=== PATIENT | female | born 1995 | race Caucasian/White ===

== ENCOUNTER 2018-09-16 11:58 | Outpatient (CLI) | payer MEDICAID ==
[~2018-09-16] VITALS: Ht 157.5 cm; Wt 88.7 kg
[2018-09-16 12:19] VITALS: Ht 157.5 cm; Wt 88.7 kg
[2018-09-16 12:28] VITALS: BP 130/64; PULSE 94; RESP 18
[2018-09-16] MEDS ORDERED: LACTATED RINGER'S 1,000 ML IV SCH (12:30)
--- NOTE | 2018-09-16 13:05 | PN ---
Triage Information Date/Time Reason for visit: DFM Weeks of Gestation 31 weeks and 6 days /Para Diabetes: none Hypertention: none Objective Vital Signs Date Temp Pulse Resp B/P (MAP) Pulse Ox O2 O2 Flow FiO2 Time Delivery Rate 09/16/18 98.2 94 18 130/64 Room Air 12:28 (86) Heart Rate: 140's Contractions: None Results/Medications Medications Current Medications Lactated Ringer's 1,000 ml @ 125 mls/hr Q8H IV Last administered on 09/16/18at 12:42; Admin Dose 125 MLS/HR; Start 09/16/18 at 12:30 Disposition: Discharge Assessment/Plan 23 years old 2 para 0-0-1-0 with single intrauterine at 31 weeks and 6 days complaining of decreased movement. She denies nausea, vomiting, shortness of breath, chest pain, headache, visual changes, vaginal bleeding or LOF. -FHR: No sign of metabolic acidosis- Category I -Contractions: None -Ultrasound performed: Normal SUSAN, BPP 8 out of 8 -Symptoms and sign of labor, preeclampsia, kick count discussed with patient, she voiced understanding. All of her questions answered. -Patient was discharged home in stable condition with the appropriate discharge instructions provided. I would like patient to have close follow-up with her primary physician or outpatient clinic in 1-2 days or return to triage for worsening symptoms or any other urgent concerns. RAYMOND BEASLEY Sep 16, 2018 13:05
== END 2018-09-16 13:05 | disposition home or self-care (01) ==
LOC: L-D 11:58 → OBT 11:58
PROVIDERS: ATTEND Obstetrics & Gynecology
DX: O36.8130 Decreased fetal movements, third trimester, not applicable or unspecified (principal); Z3A.31 31 weeks gestation of pregnancy
CPT/HCPCS: 76818; 96360; J7120; Z7500; G0463

== ENCOUNTER 2018-09-20 08:45 | Outpatient (CLI) | payer MEDICAID ==
[~2018-09-20] VITALS: Ht 157.5 cm; Wt 110.0 kg
[2018-09-20 08:48] VITALS: Ht 157.5 cm; Wt 110.0 kg
--- NOTE | 2018-09-20 10:28 | PN ---
Triage Information Date/Time Reason for visit: Hx of Decreased movments for repeat NST BPP Weeks of Gestation 32+ /Para n/a Diabetes: none Hypertention: none Objective Heart Rate: 140's Contractions: None Disposition: Discharge Assessment/Plan [facility] 12/31 Precautiosn discussed Questions answered Follow up in 2 days for NST BPP MARIO SIMMONS M.D. Sep 20, 2018 10:28
--- NOTE | 2018-09-20 10:38 | TRIAGE ---
OB Triage Datetime Report Generated by CPN: 09/20/2018 10:38 Datetime: 09/20/2018 10:14 Stage of : OB Triage Maternal Assessment Level of Consciousness: Keenly Alert, Responsive DTR's/Clonus: DTRs 1+ Headache: Denies Breath Sounds, Left: Clear and Equal Breath Sounds, Right: Clear and Equal Nausea/Vomiting: Denies RUQ Epigastric Pain: Denies Labor Evaluation Frequency: NONE Monitor Mode: External Resting Tone [place]: Relaxed Heart Rate FHR Baseline Rate: 135 Monitor Mode: External US Variability: Moderate 6-25 bpm Accelerations: 15X15 Decelerations: None Category: Category I Pain Assessment Pain Scale: 0 Pain Presence: None/Denies Pain Type: N/A Pain Goal: 3 Vaginal Exam Membrane Status: Intact Datetime: 09/20/2018 10:00 Stage of : OB Triage Maternal Assessment Level of Consciousness: Keenly Alert, Responsive DTR's/Clonus: DTRs 1+ Headache: Denies Breath Sounds, Left: Clear and Equal Breath Sounds, Right: Clear and Equal Nausea/Vomiting: Denies RUQ Epigastric Pain: Denies Labor Evaluation Frequency: NONE Monitor Mode: External Resting Tone [place]: Relaxed Heart Rate FHR Baseline Rate: 135 Monitor Mode: External US Variability: Moderate 6-25 bpm Accelerations: 15X15 Decelerations: None Pain Assessment Pain Scale: 0 Pain Presence: None/Denies Pain Type: N/A Pain Goal: 3 Vaginal Exam Membrane Status: Intact Datetime: 09/20/2018 09:23 Stage of : OB Triage Maternal Assessment Level of Consciousness: Keenly Alert, Responsive DTR's/Clonus: DTRs 1+ Headache: Denies Breath Sounds, Left: Clear and Equal Breath Sounds, Right: Clear and Equal Nausea/Vomiting: Denies RUQ Epigastric Pain: Denies Labor Evaluation Frequency: NONE Monitor Mode: External Resting Tone [place]: Relaxed Heart Rate FHR Baseline Rate: 135 Monitor Mode: External US Variability: Moderate 6-25 bpm Accelerations: 15X15 Decelerations: None Pain Assessment Pain Scale: 0 Pain Presence: None/Denies Pain Type: N/A Pain Goal: 3 Vaginal Exam Membrane Status: Intact Datetime: 09/20/2018 09:12 Maternal Assessment Level of Consciousness: Keenly Alert, Responsive DTR's/Clonus: DTRs 1+ Headache: Denies Blurred Vision: No Respiratory Effort: Unlabored Breath Sounds, Left: Clear and Equal Breath Sounds, Right: Clear and Equal Nausea/Vomiting: Denies RUQ Epigastric Pain: Denies Facial Edema: None Labor Evaluation Frequency: NONE Monitor Mode: External Resting Tone [place]: Relaxed Heart Rate FHR Baseline Rate: 135 Monitor Mode: External US Variability: Moderate 6-25 bpm Accelerations: 15X15 Decelerations: None Category: Category I Pain Assessment Pain Scale: 0 Pain Presence: None/Denies Pain Type: N/A Pain Goal: 3 Vaginal Exam Membrane Status: Intact Datetime: 09/20/2018 08:51 Stage of : OB Triage Datetime: 09/20/2018 08:33 Time of Arrival: 09/20/2018 08:33 EGA: 32.3 Arrived By: Ambulatory Arrived From: Home Chief Complaint: NST AND BPP FOR DFM FOLLOW UP Movement: Present Contractions: Denies/Absent Rupture of Membranes: Denies Vaginal Discharge: Denies Recent Sexual Intercouse: Denies Abdominal Trauma: Not Applicable Additional Patient Complaints: NONE Time Provider Notified: 09/20/2018 10:10 Provider Notified: SALCEDA/GHAYOORI Initial Plan: NST AND BPP Datetime: 09/16/2018 13:00 Stage of : Labor Labor Evaluation Frequency: 0 Monitor Mode: External Resting Tone [place]: Relaxed Heart Rate FHR Baseline Rate: 135 Monitor Mode: External US Variability: Moderate 6-25 bpm Accelerations: 15X15 Decelerations: None Datetime: 09/16/2018 12:50 Time Provider Notified: 09/16/2018 12:50 Datetime: 09/16/2018 12:30 Labor Evaluation Frequency: 0 Monitor Mode: External Resting Tone [place]: Relaxed Heart Rate FHR Baseline Rate: 140 Monitor Mode: External US Variability: Moderate 6-25 bpm Accelerations: 15X15 Decelerations: None Datetime: 09/16/2018 12:16 Stage of : OB Triage Maternal Assessment Level of Consciousness: Keenly Alert, Responsive DTR's/Clonus: DTRs 2+; No Clonus Headache: Denies Blurred Vision: No Respiratory Effort: Unlabored; Regular Rhythm; Equal Expansion Breath Sounds, Left: Clear and Equal Breath Sounds, Right: Clear and Equal Nausea/Vomiting: Denies RUQ Epigastric Pain: Denies Lower Extremities Edema: None Degree: None Upper Extremities Edema: None Degree: None Facial Edema: None Temperature Route: Oral Fall Risk Assessment History of Falling: (0) No Secondary Diagnosis: (0) No Ambulatory Aid: (0) Bedrest/Nurse Assist IV Therapy: (0) No Gait: (0) Normal/Bedrest/Immobile Mental Status: (0) Oriented to Own Ability Fall Score: 0 Fall Risk Score Definition: No Risk: No action required Pain Assessment Pain Scale: 0 Pain Presence: None/Denies Pain Type: N/A Datetime: 09/16/2018 12:13 Time of Arrival: 09/16/2018 11:50 EGA: 31.6 Arrived By: Ambulatory Arrived From: Office Chief Complaint: Decreased movement/ Oligohydramnios Movement: Present Contractions: Denies/Absent Contractions: 0 Rupture of Membranes: Denies Vaginal Bleeding: None Vaginal Discharge: Denies Recent Sexual Intercouse: Denies Abdominal Trauma: Not Applicable Patient Complaints: None Time Provider Notified: 09/16/2018 12:50 Initial Plan: BPP W SUSAN, IV HYDRATION
== END 2018-09-20 10:20 | disposition home or self-care (01) ==
LOC: OBT 08:45 → L-D 08:45 → OBT 10:20
PROVIDERS: ATTEND Obstetrics & Gynecology
DX: O36.8130 Decreased fetal movements, third trimester, not applicable or unspecified (principal); Z3A.32 32 weeks gestation of pregnancy
CPT/HCPCS: 76818; Z7500; G0463

== ENCOUNTER 2018-11-03 11:33 | Outpatient (CLI) | payer MEDICAID ==
[~2018-11-03] VITALS: Ht 157.5 cm; Wt 91.9 kg
[~2018-11-03 11:33] MED LIST: PREN-93 PO
[2018-11-03 12:00] VITALS: Ht 157.5 cm; Wt 91.9 kg
--- NOTE | 2018-11-03 16:15 | TRIAGE ---
OB Triage Datetime Report Generated by CPN: 11/03/2018 16:15 Datetime: 11/03/2018 15:21 Labor Evaluation Frequency: 3-9 Monitor Mode: External Duration (sec)2399: 40-60 Quality: Mild Pattern: Normal: <= 5 Contractions in 10 Minutes Resting Tone [place]: Relaxed Heart Rate FHR Baseline Rate: 130 Monitor Mode: External US FHR Baseline Changes: No Baseline Change Variability: Moderate 6-25 bpm Accelerations: 15X15 Decelerations: None Category: Category I Pain Assessment Pain Scale: 0 Pain Presence: None/Denies Pain Type: N/A Pain Goal: 0 Datetime: 11/03/2018 14:31 Vaginal Exam Dilatation (cms): 0.0 Effacement (%): 50 Station: -3 Exam By: MAY Datetime: 11/03/2018 14:30 Labor Evaluation Frequency: 9-12 Monitor Mode: External Duration (sec)2399: 40-100 Quality: Mild Pattern: Normal: <= 5 Contractions in 10 Minutes Resting Tone [place]: Relaxed Heart Rate FHR Baseline Rate: 140 Monitor Mode: External US FHR Baseline Changes: No Baseline Change Variability: Moderate 6-25 bpm Accelerations: 15X15 Decelerations: None Category: Category I Pain Assessment Pain Scale: 0 Pain Presence: None/Denies Pain Type: N/A Pain Goal: 0 Membrane Status: Intact Datetime: 11/03/2018 13:25 Labor Evaluation Frequency: X2 Monitor Mode: External Duration (sec)2399: 40-60 Quality: Mild Pattern: Normal: <= 5 Contractions in 10 Minutes Resting Tone [place]: Relaxed Heart Rate FHR Baseline Rate: 130 Monitor Mode: External US FHR Baseline Changes: No Baseline Change Variability: Moderate 6-25 bpm Accelerations: 15X15 Decelerations: None Category: Category I Pain Assessment Pain Scale: 0 Pain Presence: None/Denies Pain Type: N/A Pain Goal: 0 Datetime: 11/03/2018 13:00 Labor Evaluation Frequency: X1 Monitor Mode: External Duration (sec)2399: 80 Quality: Mild Pattern: Normal: <= 5 Contractions in 10 Minutes Resting Tone [place]: Relaxed Heart Rate FHR Baseline Rate: 140 Monitor Mode: External US FHR Baseline Changes: No Baseline Change Variability: Moderate 6-25 bpm Accelerations: 15X15 Decelerations: None Category: Category I Pain Assessment Pain Scale: 0 Pain Presence: None/Denies Pain Type: N/A Pain Goal: 0 Datetime: 11/03/2018 12:07 Assessment Type: Triage Maternal Assessment Level of Consciousness: Keenly Alert, Responsive DTR's/Clonus: DTRs 2+; No Clonus Headache: Denies Blurred Vision: No Respiratory Effort: Unlabored; Regular Rhythm; Equal Expansion Breath Sounds, Left: Clear and Equal Breath Sounds, Right: Clear and Equal Nausea/Vomiting: Denies RUQ Epigastric Pain: Denies Lower Extremities Edema: None Degree: None Upper Extremities Edema: None Degree: None Facial Edema: None Fall Risk Assessment History of Falling: (0) No Secondary Diagnosis: (0) No Ambulatory Aid: (0) Bedrest/Nurse Assist IV Therapy: (0) No Gait: (0) Normal/Bedrest/Immobile Mental Status: (0) Oriented to Own Ability Fall Score: 0 Fall Risk Score Definition: No Risk: No action required Monitor Mode: External Monitor Mode: External US Pain Assessment Pain Scale: 0 Pain Presence: None/Denies Pain Type: N/A Pain Goal: 0 Membrane Status: Intact Datetime: 11/03/2018 11:59 Time of Arrival: 11/03/2018 11:30 EGA: 38.5 Arrived By: Ambulatory Arrived From: Dr. Ortiz Chief Complaint: LOW SUSAN 5.5 CM Movement: Present Contractions: Denies/Absent Rupture of Membranes: Denies Vaginal Discharge: Present Recent Sexual Intercouse: Denies Patient Complaints: Other Time Provider Notified: 11/03/2018 12:33 Provider Notified: DR GREEN Initial Plan: EFM Datetime: 09/20/2018 08:33 EGA: 32.3 Datetime: 09/16/2018 12:16 Fall Score: 0 Fall Risk Score Definition: No Risk: No action required Datetime: 09/16/2018 12:13 EGA: 31.6
--- NOTE | 2018-11-08 10:51 | PREOPHP ---
DATE OF ADMISSION: 11/03/2018 HISTORY OF PRESENT ILLNESS: This is a 23-year-old lady, 2, para 0, EDC 11/12/2018 at 38 and 5/7 weeks , admitted to labor and delivery area for observation. Dr Irineo Nicholson sent her to the hospital because her SUSAN in her clinic is 6.6. She did not have any complaint, no bleeding, no vaginal discharge. PAST PERSONAL HISTORY: No history of diabetes, TB, asthma. ALLERGIES: NO ALLERGIES. SOCIAL HISTORY: Patient does not smoke. She does not drink. MEDICATIONS: She does not take any drugs except her iron and vitamins. GYNECOLOGIC HISTORY: She had menarche at the age of 12, every 28 days interval, 3 to 4 days duration , and moderate in amount. FAMILY HISTORY: Noncontributory. REVIEW OF SYSTEMS: CARDIOVASCULAR: No chest pains. RESPIRATORY: No cough. GASTROINTESTINAL: No diarrhea, no vomiting. GENITOURINARY: No dysuria. PHYSICAL EXAMINATION: GENERAL: Reveals a conscious, coherent lady in no acute distress. VITAL SIGNS: Her blood pressure 120/80, pulse rate 80 per minute, respirations 16 per minute. BREASTS, HEART AND LUNGS: Within normal limits. ABDOMEN: Soft. No organomegaly. Fundic height 36 cm. heart tones 140 per minute. PELVIC: Revealed the cervix to be closed. EXTREMITIES: No pedal edema. ADMITTING DIAGNOSIS: A 38 and 5/7 weeks intrauterine , rule out oligohydramnios. Patient h ad a repeat SUSAN in the hospital and the SUSAN was 11.7 and the estimated weight is 7 pounds 6 oun sumit. The patient did not have any contractions and no vaginal discharge. So she was discharged home in good and stable condition on general diet and activity was restricted. She was counseled. She w as instructed. She was told to keep her appointment in her clinic. FINAL DIAGNOSIS: A 38 and 5/7 weeks intrauterine and dehydration. PLAN: The patient was told to drink a lot of fluids. Dictated By: MARIJA GREEN MD NS/NTS Conf#: [id number] DID#: [id number] CC: LUTHER NICHOLSON MD;*EndCC*
== END 2018-11-03 15:37 | disposition home or self-care (01) ==
LOC: OBT 11:33 → L-D 11:33 → OBT 15:37
PROVIDERS: ATTEND Obstetrics & Gynecology
DX: O41.93X0 Disorder of amniotic fluid and membranes, unspecified, third trimester, not applicable or unspecified (principal); Z3A.38 38 weeks gestation of pregnancy
CPT/HCPCS: 76815; 76818; 84112; Z7500; G0463

== ENCOUNTER 2018-11-10 05:19 | Inpatient (IN) | payer MEDICAID ==
[~2018-11-10] VITALS: Ht 157.5 cm; Wt 92.7 kg
[2018-11-10 05:28] VITALS: Ht 157.5 cm; Wt 92.7 kg
[2018-11-10 05:34] VITALS: BP 129/71; PULSE 74; RESP 18
[2018-11-10] MEDS ORDERED: LACTATED RINGER'S 1,000 ML IV PRN (06:27)
[2018-11-10] MEDS ORDERED: MISOPROSTOL 200 MCG TAB PR PRN (06:30)
[2018-11-10] MEDS ORDERED: OXYTOCIN 30 UNITS/LR 500 ML IV PRN (06:30)
[2018-11-10] MEDS ORDERED: CARBOPROST 250 MCG INJ IM PRN (06:30)
[2018-11-10] MEDS ORDERED: IBUPROFEN 600 MG TAB PO PRN (06:30)
[2018-11-10] MEDS ORDERED: OXYTOCIN 30 UNITS/LR 500 ML IV SCH ×3 (06:30→17:00)
[2018-11-10] MEDS ORDERED: BUTORPHANOL 2 MG INJ IV PRN (06:30)
[2018-11-10] MEDS ORDERED: METHYLERGONOVINE 0.2 MG INJ IM PRN (06:30)
[2018-11-10] MEDS ORDERED: LIDOCAINE 1% (MPF) 30 ML INJ INJ PRN (06:30)
[2018-11-10] MEDS ORDERED: MINERAL OIL LIGHT 10 ML VIAL TOP ONE (06:30)
[2018-11-10] MEDS: LACTATED RINGER'S 1,000 ML IV SCH ×3 (07:41→21:20)
[2018-11-10] MEDS: MISOPROSTOL 50 MCG CAPSULE PO SCH ×3 (08:08→16:01)
[2018-11-10] MEDS ORDERED: HYDROmorphONE 0.5 MG/0.5 ML SYG IV PRN ×2 (14:30)
[2018-11-10] MEDS ORDERED: FENTAnyl 2MCG/ML-ROPIV 0.2% 100 ML BAG EPI SCH (14:30)
[2018-11-10] MEDS ORDERED: DIPHENHYDRAMINE 50 MG INJ IV PRN (14:30)
[2018-11-10] MEDS ORDERED: ONDANSETRON 4 MG INJ IV PRN (14:30)
[2018-11-10] MEDS ORDERED: NALOXONE (0.4 MG/ML) INJ IV PRN (14:30)
[2018-11-10] MEDS ORDERED: KETOROLAC 30 MG INJ IV PRN (14:30)
[2018-11-11 03:30] VITALS: BP 126/78; PULSE 93; RESP 19
[2018-11-11] MEDS ORDERED: LACTATED RINGER'S 1,000 ML IV* SCH (03:53)
[2018-11-11] MEDS ORDERED: DEXTROSE 5%-LR 1,000 ML IV SCH (03:53)
[2018-11-11] MEDS ORDERED: SENNA/DOCUSATE NA (8.6MG/50MG) TAB PO PRN (04:00)
[2018-11-11] MEDS ORDERED: MAGNESIUM HYDROXIDE 30ML CUP PO PRN (04:00)
[2018-11-11] MEDS ORDERED: DIPHENHYDRAMINE 50 MG INJ IV PRN (04:00)
[2018-11-11] MEDS ORDERED: OXYTOCIN 30 UNITS/LR 500 ML IV PRN (04:00)
[2018-11-11] MEDS ORDERED: CARBOPROST 250 MCG INJ IM PRN (04:00)
[2018-11-11] MEDS ORDERED: ZOLPIDEM 5 MG TAB PO PRN (04:00)
[2018-11-11] MEDS ORDERED: ONDANSETRON 4 MG INJ IV PRN (04:00)
[2018-11-11] MEDS ORDERED: OXYCODONE/ASPIRIN (4.88/325) TAB PO PRN (04:00)
[2018-11-11] MEDS ORDERED: DIBUCAINE 1% 30 GM OINT TOP PRN (04:00)
[2018-11-11] MEDS ORDERED: ACETAMINOPHEN 325 MG TAB PO PRN (04:00)
[2018-11-11] MEDS ORDERED: METHYLERGONOVINE 0.2 MG INJ IM PRN (04:00)
[2018-11-11] MEDS ORDERED: MISOPROSTOL 200 MCG TAB PR PRN (04:00)
[2018-11-11 04:30] VITALS: BP 129/65; PULSE 89; RESP 19
[2018-11-11] MEDS: IBUPROFEN 600 MG TAB PO SCH ×4 (05:41→23:48)
[2018-11-11] MEDS: BENZOCAINE 20% 56 ML SPRAY TOP PRN (05:42)
[2018-11-11] MEDS: WITCH HAZEL/GLYCERIN PAD PR PRN (05:42)
[2018-11-11 07:45] VITALS: BP 111/69; PULSE 105; RESP 18
[2018-11-11 16:57] VITALS: BP 121/64; PULSE 100; RESP 18
[2018-11-11 19:50] VITALS: BP 116/71; PULSE 95; RESP 19
[2018-11-12 03:50] VITALS: BP 103/61; PULSE 81; RESP 19
[2018-11-12] MEDS: IBUPROFEN 600 MG TAB PO SCH ×3 (05:32→17:18)
[2018-11-12] MEDS: LANOLIN HPA 1 PKT TOP PRN ×2 (07:47→07:49)
[2018-11-12] MEDS: BENZOCAINE 20% 56 ML SPRAY TOP PRN (07:47)
[2018-11-12] MEDS: WITCH HAZEL/GLYCERIN PAD PR PRN (07:47)
[2018-11-12 08:58] VITALS: BP 114/74; PULSE 77; RESP 16
[2018-11-12 16:01] VITALS: BP 116/73; PULSE 85; RESP 18
[2018-11-12 19:45] VITALS: BP 138/82; PULSE 109; RESP 18
[2018-11-13] MEDS: IBUPROFEN 600 MG TAB PO SCH ×3 (00:15→12:27)
[2018-11-13 04:15] VITALS: BP 100/64; PULSE 89; RESP 19
[2018-11-13 08:00] VITALS: BP 118/84; PULSE 91; RESP 19
[2018-11-13] MEDS ORDERED: MEASLES,MUMPS,RUBELLA VACCINE INJ SC* ONE (09:00)
[2018-11-13] MEDS ORDERED: DIPHTH/TET/ACEL PERTUSS (ADULT) 0.5 ML VIAL IM* ONE (09:00)
== END 2018-11-13 14:20 | disposition home or self-care (01) | DRG 806 ==
LOC: L-D 05:19 → OBT 05:19 → L-D 06:08 → PP1 11-11 03:32
PROVIDERS: ADMIT Obstetrics & Gynecology; ATTEND Obstetrics & Gynecology
PROC: 10E0XZZ Delivery of Products of Conception, External Approach (ICD-10-PCS; principal; 2018-11-11)
PROC: 0UQGXZZ Repair Vagina, External Approach (ICD-10-PCS; 2018-11-11)
PROC: 3E033VJ Introduction of Other Hormone into Peripheral Vein, Percutaneous Approach (ICD-10-PCS; 2018-11-11)
DX: O69.81X0 Labor and delivery complicated by cord around neck, without compression, not applicable or unspecified (principal); O71.4 Obstetric high vaginal laceration alone; Z37.0 Single live birth; Z3A.39 39 weeks gestation of pregnancy
CPT/HCPCS: 62322; 76815; 76818; 85025; 85610; 85730; 86592; 86703; 86803; 86850; 86900; 86901; 87340; 88305; 99464; G0463; J2590; J3010; J7120; J7121